=== PATIENT | female | born 1945 | race Caucasian/White ===

== ENCOUNTER 2021-12-10 20:44 | Inpatient (IN) | payer OTHER, MEDICARE ==
[~2021-12-10 20:44] MED LIST: ATROVENT HFA12.9 GM INH; DARVOCET N 1001 TAB PO; DAYPRO600 M1 PO; VENT7GM INH; ZESTORETIC 10-1 EACH PO
[2021-12-10 21:13] VITALS: BP 120/57
[2021-12-11] VITALS: BP 146/89
[2021-12-11 08:00] VITALS: BP 149/77
[2021-12-11 12:00] VITALS: BP 108/57
[2021-12-11 16:00] VITALS: BP 133/63
[2021-12-11 20:00] VITALS: BP 109/68
[2021-12-12] VITALS: BP 85/63
[2021-12-12 08:00] VITALS: BP 75/42
[2021-12-12 12:00] VITALS: BP 75/31
== END 2021-12-12 15:55 | DRG 193 ==
LOC: 4E 20:44
PROVIDERS: ADMIT Internal Medicine; ATTEND Internal Medicine
DX: J18.9 Pneumonia, unspecified organism (principal); E43 Unspecified severe protein-calorie malnutrition; J44.1 Chronic obstructive pulmonary disease with (acute) exacerbation; E87.1 Hypo-osmolality and hyponatremia; E44.0 Moderate protein-calorie malnutrition; E87.2 Acidosis; R17 Unspecified jaundice; S29.011A Strain of muscle and tendon of front wall of thorax, initial encounter; E87.8 Other disorders of electrolyte and fluid balance, not elsewhere classified; R73.9 Hyperglycemia, unspecified; R74.01 Elevation of levels of liver transaminase levels; R07.81 Pleurodynia; I10 Essential (primary) hypertension; Z66 Do not resuscitate; Z51.5 Encounter for palliative care; Z68.22 Body mass index [BMI] 22.0-22.9, adult; Z79.899 Other long term (current) drug therapy